=== PATIENT | female | born 1965 | race Caucasian/White ===

== ENCOUNTER 2019-02-20 22:45 | Observation (INO) ==
[2019-02-21 00:25] LABS: Apearance,Urine Slightly Hazy (Clear); Bacteria,Urine Occasional /HPF (Few); Bilirubin,Urine Negative (Negative); Blood, Urine Negative (Negative); Glucose,Urine (UA) Negative (Negative); Ketones,Urine 5 mg/dL (Negative); Mucus,Urine Occasional /LPF (Occasional); Nitrite,Urine Negative (Negative); Protein,Urine 30 MG/DL; RBC,Urine 4 /HPF (0-4); Squamous Epithelial Cell,Urine Occasional /HPF (0-10); Urine Color Yellow (Yellow); Urine Specific Gravity 1.025 (1.001-1.035); WBC,Urine 139 /HPF (0-6)
[2019-02-21 02:26] LABS: Basophils % 0.5 % (0.0-0.8); Eosinophils # 0.1 10*3/uL (0.0-0.87); Eosinophils % 1.8 % (0.00-10.9); Hematocrit 36.2 VOL% (35.7-47.0); Immature Granulocytes % 0.6 %; Immature Granulocytes Absolute 0.04 #; Lymphocytes # 2.2 10*3/uL (1.4-4.0); Lymphocytes % 34.9 % (21.3-54.2); Mean Corpuscular HGB Conc 30.4 GM/DL (32-36); Mean Corpuscular Volume 81.9 FL (87-102); Mean Platelet Volume 10.2 FL (9.6-12.0); Monocytes % 6.8 % (1.7-12.7); Neutrophils % 55.4 % (38.7-73.9); Platelet Count 207 T/CUMM (130-400); Red Blood Count 4.42 MC/CUMM (3.8-5.5); Red Cell Distribution Width 15.8 % (9.3-17.3); White Blood Count 6.3 T/CUMM (4-12)
[2019-02-21 02:32] LABS: INR 0.9; PT Patient Result 10.3 SECS (9.6-12.2); Partial Thromboplastin Time 25.8 SECS (20.8-36.0)
[2019-02-21 02:39] LABS: Alanine Aminotransferase 29 U/L (13-56); Albumin 3.4 G/DL (3.4-5.0); Alkaline Phosphatase 111 U/L (45-117); Aspartate Amino Transferase 25 U/L (0-37); Bilirubin,Total < 0.39 MG/DL (0.2-1.0); Blood Urea Nitrogen 10 MG/DL (7-18); Calcium 8.6 MG/DL (8.5-10.1); Estimated Glom Filtration Rate 92 ML/MIN; Glucose 109 MG/DL (74-106); Osmolality,Calculated 280.3 MOS/KG (273-304); Total Protein 7.3 G/DL (6.4-8.3)
[2019-02-21] MEDS ORDERED: CEFEPIME 2,000 MG in SODIUM CHLORIDE 0.9% 100 ML IV STA ×2 (02:45→02:47)
[2019-02-21] MEDS ORDERED: KETOROLAC 30 MG/1 ML VIAL IV STA (02:45)
[2019-02-21] MEDS ORDERED: SODIUM CHLORIDE 0.9% 1,000 ML IV STA (03:10)
[2019-02-21] MEDS ORDERED: ONDANSETRON 4 MG/2 ML VIAL IV PRN (03:49)
[2019-02-21] MEDS ORDERED: ACETAMINOPHEN 325 MG TABLET PO PRN (03:49)
[2019-02-21] MEDS ORDERED: hydrALAZINE 25 MG TABLET PO PRN (03:55)
[2019-02-21] MEDS: LEVOTHYROXINE 200 MCG TABLET PO SCH (05:46)
[2019-02-21] MEDS: FUROSEMIDE 20 MG TABLET PO SCH (08:18)
[2019-02-21] MEDS: PANTOPRAZOLE 40 MG TABLET PO SCH (08:18)
[2019-02-21] MEDS: METOPROLOL TARTRATE 50 MG TABLET PO SCH ×2 (08:18→20:26)
[2019-02-21] MEDS: CEFEPIME 1,000 MG in SODIUM CHLORIDE 0.9% 100 ML IV SCH ×3 (08:18→20:26)
[2019-02-21] MEDS: ENOXAPARIN 40 MG/0.4 ML SYRINGE SUBCUT SCH (08:18)
[2019-02-21] MEDS ORDERED: INFLUENZA VIRUS VACCINE 0.5 ML SYRINGE IM ONE (09:00)
[2019-02-22] MEDS: CEFEPIME 1,000 MG in SODIUM CHLORIDE 0.9% 100 ML IV SCH ×3 (03:56→15:50)
[2019-02-22] MEDS: LEVOTHYROXINE 200 MCG TABLET PO SCH (06:01)
[2019-02-22] MEDS: FUROSEMIDE 20 MG TABLET PO SCH (09:12)
[2019-02-22] MEDS: METOPROLOL TARTRATE 50 MG TABLET PO SCH (09:13)
[2019-02-22] MEDS: PANTOPRAZOLE 40 MG TABLET PO SCH (09:13)
[2019-02-22] MEDS: ENOXAPARIN 40 MG/0.4 ML SYRINGE SUBCUT SCH (09:14)
[2019-02-22 15:09] VITALS: BP 132/74
[2019-02-23] MEDS ORDERED: POLYETHYLENE GLYCOL POWDER 17 GM PACK PO SCH (09:00)
== END 2019-02-22 19:22 | disposition home or self-care (01) ==
LOC: N.ED 22:45 → N.EDINP 22:45 → SUATTDRO 02-21 03:43 → N.5E 02-21 04:54
PROVIDERS: ADMIT Internal Medicine; ATTEND Internal Medicine Geriatric Medicine

== ENCOUNTER 2020-09-05 12:35 | Observation (INO) ==
[2020-09-05] MEDS ORDERED: hydrALAZINE 20 MG/1 ML VIAL IV PRN (12:43)
[2020-09-05] MEDS ORDERED: MAGNESIUM SULF RIDER 4 GM in PREMIX 1 EACH IV PRN (12:43)
[2020-09-05] MEDS ORDERED: diphenhydrAMINE CAP 25 MG CAPSULE PO PRN (12:43)
[2020-09-05] MEDS ORDERED: LACTULOSE 20 GM/30 ML UDCUP PO PRN (12:43)
[2020-09-05] MEDS ORDERED: BISACODYL 5 MG TABLET PO PRN (12:43)
[2020-09-05] MEDS ORDERED: POTASSIUM CHLORIDE 20 MEQ TABLET PO PRN (12:43)
[2020-09-05] MEDS ORDERED: ONDANSETRON 4 MG/2 ML VIAL IV PRN (12:43)
[2020-09-05] MEDS ORDERED: ALUMINUM/MAGNES/SIMETH MAX STR 30 ML UDCUP PO PRN (12:43)
[2020-09-05] MEDS ORDERED: guaiFENesin/DM ER 600-30 MG TABLET PO PRN (12:43)
[2020-09-05] MEDS ORDERED: ZALEPLON 5 MG CAPSULE PO PRN (12:43)
[2020-09-05] MEDS ORDERED: MAGNESIUM SULF RIDER 2 GM in PREMIX 1 EACH IV PRN (12:43)
[2020-09-05] MEDS ORDERED: MORPHINE 4 MG/1 ML VIAL IV PRN (12:43)
[2020-09-05] MEDS ORDERED: CALCIUM CARBONATE CHEW 500 MG TABLET PO PRN (12:43)
[2020-09-05] MEDS ORDERED: SIMETHICONE CHEW 125 MG TABLET PO PRN (12:43)
[2020-09-05] MEDS ORDERED: ACETAMINOPHEN 325 MG TABLET PO PRN (12:43)
[2020-09-05] MEDS ORDERED: diphenhydrAMINE CAP 25 MG CAPSULE PO ONE (12:50)
[2020-09-05] MEDS ORDERED: DIAZEPAM 5 MG TABLET PO ONE (12:50)
[2020-09-05] MEDS ORDERED: ASPIRIN CHEW 81 MG TABLET PO ONE (14:35)
[2020-09-05 14:47] LABS: Basophils % 0.4 % (0.0-0.8); Eosinophils # 0.1 10*3/uL (0.0-0.87); Eosinophils % 0.9 % (0.00-10.9); Hematocrit 37.7 VOL% (35.7-47.0); Hemoglobin 11.9 GM/DL (12.0-16.0); Immature Granulocytes % 0.6 %; Immature Granulocytes Absolute 0.05 #; Lymphocytes # 1.7 10*3/uL (1.4-4.0); Lymphocytes % 21.8 % (21.3-54.2); Mean Corpuscular HGB Conc 31.6 GM/DL (32-36); Mean Corpuscular Volume 85.9 FL (87-102); Mean Platelet Volume 10.3 FL (9.6-12.0); Neutrophils % 72.3 % (38.7-73.9); Platelet Count 202 T/CUMM (130-400); Red Blood Count 4.39 MC/CUMM (3.8-5.5); Red Cell Distribution Width 14.7 % (9.3-17.3); White Blood Count 7.8 T/CUMM (4-12)
[2020-09-05 15:07] LABS: Albumin 3.5 G/DL (3.4-5.0); Bilirubin,Total 0.6 MG/DL (0.2-1.0); Calcium 8.9 MG/DL (8.5-10.1); Osmolality,Calculated 278.4 MOS/KG (273-304); Potassium 3.6 MMOL/L (3.5-5.1); Total Protein 7.6 G/DL (6.4-8.2); Troponin I < 0.015 NG/ML (0.00-0.045)
[2020-09-05] MEDS: ENOXAPARIN 40 MG/0.4 ML SYRINGE SUBCUT SCH (15:45)
[2020-09-05 17:54] LABS: Bacteria,Urine Occasional /HPF (Few); Bilirubin,Urine Negative (Negative); Blood, Urine Negative (Negative); Calcium Oxalate Crystals,Urine Occasional /HPF (Few); Glucose,Urine (UA) Negative (Negative); Hyaline Casts,Urine 4 /LPF (0-3); Ketones,Urine Negative (Negative); Mucus,Urine Occasional /LPF (Occasional); Nitrite,Urine Positive (Negative); Protein,Urine Negative; RBC,Urine 37 /HPF (0-4); Squamous Epithelial Cell,Urine Occasional /HPF (0-10); Urine Appearance Slightly Hazy (Clear); Urine Color Yellow (Yellow); Urine Specific Gravity 1.013 (1.001-1.035); Urine Urobilinogen < 2.0 EU/DL (0.2-1.0); WBC,Urine 44 /HPF (0-6)
[2020-09-05 18:10] LABS: Troponin I < 0.015 NG/ML (0.00-0.045)
[2020-09-05] MEDS: NEBIVOLOL 10 MG TABLET PO SCH (20:27)
[2020-09-05 21:13] LABS: Troponin I < 0.015 NG/ML (0.00-0.045)
[2020-09-06] MEDS ORDERED: SODIUM CHLORIDE 0.9% 1,000 ML IV SCH (05:00)
[2020-09-06] MEDS: LEVOTHYROXINE 137 MCG TABLET PO SCH (05:36)
[2020-09-06 05:37] LABS: Basophils % 0.4 % (0.0-0.8); Eosinophils # 0.1 10*3/uL (0.0-0.87); Eosinophils % 1.6 % (0.00-10.9); Hematocrit 34.2 VOL% (35.7-47.0); Hemoglobin 10.9 GM/DL (12.0-16.0); Immature Granulocytes % 0.5 %; Immature Granulocytes Absolute 0.04 #; Lymphocytes # 2.8 10*3/uL (1.4-4.0); Mean Corpuscular HGB Conc 31.9 GM/DL (32-36); Mean Corpuscular Volume 86.1 FL (87-102); Mean Platelet Volume 10.6 FL (9.6-12.0); Monocytes % 6.1 % (1.7-12.7); Neutrophils % 53.4 % (38.7-73.9); Platelet Count 197 T/CUMM (130-400); Red Blood Count 3.97 MC/CUMM (3.8-5.5); Red Cell Distribution Width 14.7 % (9.3-17.3); White Blood Count 7.4 T/CUMM (4-12)
[2020-09-06 05:49] LABS: Osmolality,Calculated 273.8 MOS/KG (273-304); Potassium 3.5 MMOL/L (3.5-5.1); Risk Ratio 3.56; VLDL CHOLESTEROL 30.8 MG/DL
[2020-09-06 06:04] LABS: Hypochromasia 1+; Microcytosis 1+; Ovalocytes Slight; Platelet Estimate Adequate
[2020-09-06] MEDS ORDERED: DIAZEPAM 5 MG TABLET ONE (07:47)
[2020-09-06] MEDS: ASPIRIN EC 81 MG TABLET PO SCH (08:00)
[2020-09-06] MEDS: PANTOPRAZOLE 40 MG TABLET PO SCH (08:07)
[2020-09-06] MEDS ORDERED: LIDOCAINE 1% 20 ML VIAL ONE (08:31)
[2020-09-06] MEDS ORDERED: HEPARIN/NACL 0.9% 2 UNITS/ML 2,000 UNIT/1,000 ML BAG IV ONE (08:31)
[2020-09-06] MEDS ORDERED: MIDAZOLAM 2 MG/2 ML VIAL ONE (09:12)
[2020-09-06] MEDS ORDERED: fentaNYL 100 MCG/2 ML VIAL ONE (09:12)
[2020-09-06] MEDS ORDERED: ACETAMINOPHEN/CODEINE 300-30 MG TABLET PO PRN (09:50)
[2020-09-06] MEDS ORDERED: ceFAZolin 1,000 MG VIAL IRRIG ONE (13:48)
[2020-09-06] MEDS ORDERED: ceFAZolin 1,000 MG in SYRINGE 1 EACH IV ONE ×2 (13:48→14:00)
[2020-09-06] MEDS: ENOXAPARIN 40 MG/0.4 ML SYRINGE SUBCUT SCH (14:09)
[2020-09-06] MEDS: NEBIVOLOL 10 MG TABLET PO SCH ×2 (17:47→18:39)
[2020-09-07] MEDS: LEVOTHYROXINE 137 MCG TABLET PO SCH (05:36)
[2020-09-07 06:07] LABS: Basophils % 0.5 % (0.0-0.8); Eosinophils # 0.1 10*3/uL (0.0-0.87); Eosinophils % 2.3 % (0.00-10.9); Hemoglobin 11.6 GM/DL (12.0-16.0); Immature Granulocytes % 0.8 %; Immature Granulocytes Absolute 0.05 #; Lymphocytes # 2.2 10*3/uL (1.4-4.0); Lymphocytes % 35.9 % (21.3-54.2); Mean Corpuscular HGB Conc 32.2 GM/DL (32-36); Mean Corpuscular Volume 86.1 FL (87-102); Mean Platelet Volume 10.7 FL (9.6-12.0); Monocytes % 5.8 % (1.7-12.7); Neutrophils % 54.7 % (38.7-73.9); Platelet Count 192 T/CUMM (130-400); Red Blood Count 4.18 MC/CUMM (3.8-5.5); White Blood Count 6.2 T/CUMM (4-12)
[2020-09-07 06:27] LABS: Calcium 9.2 MG/DL (8.5-10.1); Osmolality,Calculated 276.5 MOS/KG (273-304); Potassium 3.8 MMOL/L (3.5-5.1)
[2020-09-07] MEDS ORDERED: SODIUM CHLORIDE 0.9% 1,000 ML IV SCH (07:00)
[2020-09-07] MEDS ORDERED: ceFAZolin 1,000 MG VIAL IRRIG ONE (08:00)
[2020-09-07] MEDS ORDERED: ceFAZolin 1,000 MG in SYRINGE 1 EACH IV ONE (08:00)
[2020-09-07] MEDS: ASPIRIN EC 81 MG TABLET PO SCH (08:33)
[2020-09-07] MEDS: PANTOPRAZOLE 40 MG TABLET PO SCH (08:33)
[2020-09-07] MEDS ORDERED: SUGAMMADEX 200 MG/2 ML VIAL IV ONE (09:01)
[2020-09-07] MEDS ORDERED: LIDOCAINE 1% 20 ML VIAL ONE (09:20)
[2020-09-07] MEDS ORDERED: HEPARIN/NACL 0.9% 2 UNITS/ML 1,000 UNIT/500 ML BAG IV ONE (09:20)
[2020-09-07] MEDS ORDERED: ceFAZolin 1,000 MG VIAL ONE (09:20)
[2020-09-07] MEDS ORDERED: TISSUE ADHESIVE 1 EACH APPLICATOR TOP ONE (09:20)
[2020-09-07] MEDS ORDERED: LIDOCAINE 1%/EPI INJ 20 ML VIAL ONE (11:29)
[2020-09-07] MEDS ORDERED: propofoL 200 MG/20 ML VIAL IV ONE (12:43)
[2020-09-07] MEDS ORDERED: LIDOCAINE 2% 5 ML VIAL ONE (12:43)
[2020-09-07] MEDS ORDERED: MIDAZOLAM 2 MG/2 ML VIAL ONE (12:43)
[2020-09-07] MEDS ORDERED: fentaNYL 100 MCG/2 ML VIAL ONE (12:43)
[2020-09-07] MEDS ORDERED: DEXAMETHASONE 4 MG/1 ML VIAL ONE (12:44)
[2020-09-07] MEDS ORDERED: PHENYLEPHRINE 10 MG/1 ML VIAL IV ONE (12:44)
[2020-09-07] MEDS ORDERED: ONDANSETRON 4 MG/2 ML VIAL ONE (12:44)
[2020-09-07] MEDS ORDERED: LACTATED RINGERS 1,000 ML IV ONE (12:44)
[2020-09-07] MEDS ORDERED: ROCURONIUM 50 MG/5 ML VIAL IV ONE (12:44)
[2020-09-07] MEDS ORDERED: SODIUM CHLORIDE 0.9% 250 ML IV ONE (12:44)
[2020-09-07] MEDS ORDERED: SUCCINYLCHOLINE 200 MG/10 ML VIAL ONE (12:44)
[2020-09-07] MEDS: ENOXAPARIN 40 MG/0.4 ML SYRINGE SUBCUT SCH (13:11)
[2020-09-07] MEDS: NEBIVOLOL 10 MG TABLET PO SCH ×2 (17:50→18:40)
[2020-09-07] MEDS: CIPROFLOXACIN 250 MG TABLET PO SCH (20:52)
[2020-09-08 05:09] LABS: Basophils % 0.2 % (0.0-0.8); Hematocrit 33.2 VOL% (35.7-47.0); Hemoglobin 10.5 GM/DL (12.0-16.0); Immature Granulocytes % 1.2 %; Immature Granulocytes Absolute 0.15 #; Lymphocytes # 1.1 10*3/uL (1.4-4.0); Lymphocytes % 8.3 % (21.3-54.2); Mean Corpuscular HGB Conc 31.6 GM/DL (32-36); Mean Platelet Volume 10.4 FL (9.6-12.0); Monocytes % 4.4 % (1.7-12.7); Neutrophils % 85.9 % (38.7-73.9); Platelet Count 218 T/CUMM (130-400); Red Blood Count 3.86 MC/CUMM (3.8-5.5); Red Cell Distribution Width 14.6 % (9.3-17.3); White Blood Count 12.7 T/CUMM (4-12)
[2020-09-08 05:42] LABS: Calcium 8.5 MG/DL (8.5-10.1); Osmolality,Calculated 281.5 MOS/KG (273-304); Potassium 4.1 MMOL/L (3.5-5.1)
[2020-09-08] MEDS: LEVOTHYROXINE 137 MCG TABLET PO SCH (06:49)
[2020-09-08] MEDS: PANTOPRAZOLE 40 MG TABLET PO SCH (09:17)
[2020-09-08] MEDS: ASPIRIN EC 81 MG TABLET PO SCH (09:17)
[2020-09-08] MEDS: CIPROFLOXACIN 250 MG TABLET PO SCH (09:20)
[2020-09-08] MEDS: ENOXAPARIN 40 MG/0.4 ML SYRINGE SUBCUT SCH (13:35)
[2020-09-08 16:46] VITALS: BP 126/72
== END 2020-09-08 17:56 | disposition home or self-care (01) ==
LOC: N.TELEN 13:15 → INTOOBSV 13:15 → PREOBSVTOIN 09-06 13:15
PROVIDERS: ADMIT Internal Medicine Cardiovascular Disease; ATTEND Internal Medicine Cardiovascular Disease
PROC: CLCCHCL (ICD-10-PCS; 2020-09-06 09:15)
PROC: CLDCICD (2020-09-07 09:45)